=== PATIENT | female | born 1945 | race Caucasian/White ===

== ENCOUNTER 2017-03-06 09:07 | Outpatient (CLI) | payer MEDICARE, OTHER ==
[2017-03-06 18:13] LABS: T4 (THYROXINE) 9.27 ug/dL (6.09-12.23)
[2017-03-06 18:17] LABS: THYROID STIMULATING HORMONE 0.54 uIU/mL (0.34-5.60)
[2017-03-06 18:18] LABS: FREE T4 (FREE THYROXINE) 1.11 ng/dL (0.58-1.64)
[2017-03-06 18:22] LABS: TOTAL T3 0.6 ng/mL (0.87-1.78)
== END 2017-03-06 09:08 | disposition home or self-care (01) ==
LOC: LAB.F 09:07
PROVIDERS: ATTEND Internal Medicine
DX: E03.9 Hypothyroidism, unspecified (principal); M35.3 Polymyalgia rheumatica
CPT/HCPCS: 36415; 84436; 84439; 84443; 84480; 84481; 85651; 86140

== ENCOUNTER 2017-08-24 10:32 | Outpatient (CLI) | payer MEDICARE, OTHER ==
[2017-08-24 18:38] LABS: ALBUMIN 4.4 g/dL (3.2-5.5); ALBUMIN/GLOBULIN RATIO 1.5 (1.0-2.2); BILIRUBIN,TOTAL 0.6 mg/dL (0.2-1.0); CALCIUM 9.6 mg/dL (8.5-10.3); CREATININE 0.7 mg/dL (0.4-1.0); TOTAL PROTEIN 7.4 g/dL (6.7-8.2)
== END 2017-08-24 10:33 | disposition home or self-care (01) ==
LOC: LAB.F 10:32
PROVIDERS: ATTEND Nurse Practitioner Family
DX: M81.0 Age-related osteoporosis without current pathological fracture (principal)
CPT/HCPCS: 36415; 80053

== ENCOUNTER 2017-10-22 08:00 | Outpatient (CLI) | payer MEDICARE, OTHER ==
[2017-10-22 18:26] LABS: CREATININE 0.6 mg/dL (0.4-1.0)
== END 2017-10-22 08:01 | disposition home or self-care (01) ==
LOC: LAB.R 08:00
PROVIDERS: ATTEND Physician Assistant Medical
DX: Z79.899 Other long term (current) drug therapy (principal)
CPT/HCPCS: 82565

== ENCOUNTER 2017-10-22 14:36 | Outpatient (CLI) | payer MEDICARE, OTHER ==
--- NOTE | 2017-10-22 15:35 | XRAY Report ---
Reason: KNEE JOINT PAIN, Procedure Date: 10/22/2017 Accession Number: [id number] / [id number] Procedure: XR - Knee 3 View LT CPT Code: FULL RESULT: EXAM: LEFT KNEE RADIOGRAPHY EXAM DATE: 10/22/2017 02:56 PM. CLINICAL HISTORY: KNEE JOINT PAIN. COMPARISON: None. TECHNIQUE: 3 views. FINDINGS: Knee prosthesis is noted. Alignment appears anatomic. There is a small effusion. No evidence of fracture or acute complication. IMPRESSION: Knee prosthesis. No evidence of fracture or acute complication RADIA
== END 2017-10-22 14:37 | disposition home or self-care (01) ==
LOC: DI 14:36
PROVIDERS: ATTEND Physician Assistant Medical
DX: M25.562 Pain in left knee (principal); Z96.652 Presence of left artificial knee joint

== ENCOUNTER 2018-03-10 08:13 | Outpatient (CLI) | payer MEDICARE, OTHER ==
[2018-03-10 10:51] LABS: BASOPHILS % (AUTO) 0.6 %; EOSINOPHILS # (AUTO) 0.3 10^3/uL (0.0-0.7); EOSINOPHILS % (AUTO) 5.2 %; HGB - HEMOGLOBIN 13.6 g/dL (12.0-16.0); LYMPHOCYTES # (AUTO) 1.7 10^3/uL (1.5-3.5); LYMPHOCYTES % (AUTO) 30.9 %; MEAN CORPUSCULAR HEMOGLOBIN 30.6 pg (27.0-31.0); MEAN CORPUSCULAR HGB CONC 34.2 g/dL (32.0-36.0); MEAN CORPUSCULAR VOLUME 89.4 fL (81.0-99.0); MEAN PLATELET VOLUME 9.2 fL (7.9-10.8); MONOCYTES # (AUTO) 0.5 10^3/uL (0.0-1.0); MONOCYTES % (AUTO) 8.5 %; NEUTROPHILS % (AUTO) 54.8 %; PLT - PLATELET COUNT 222 10^3/uL (130-450); RED BLOOD COUNT 4.44 10^6/uL (4.20-5.40); RED CELL DISTRIBUTION WIDTH 13.4 % (12.0-15.0); WHITE BLOOD COUNT 5.5 x10^3/uL (4.8-10.8)
[2018-03-10 11:12] LABS: T4 (THYROXINE) 8.41 ug/dL (6.09-12.23)
[2018-03-10 11:16] LABS: FREE T4 (FREE THYROXINE) 1.1 ng/dL (0.58-1.64); THYROID STIMULATING HORMONE 0.31 uIU/mL (0.34-5.60)
[2018-03-10 11:20] LABS: TOTAL T3 0.74 ng/mL (0.87-1.78)
== END 2018-03-10 08:14 | disposition home or self-care (01) ==
LOC: LAB.F 08:13
PROVIDERS: ATTEND Internal Medicine
DX: M81.0 Age-related osteoporosis without current pathological fracture (principal); E03.9 Hypothyroidism, unspecified; M35.3 Polymyalgia rheumatica; Z79.899 Other long term (current) drug therapy
CPT/HCPCS: 36415; 80053; 82306; 84436; 84439; 84443; 84480; 84481; 85025; 86140

== ENCOUNTER 2022-04-14 08:00 | Outpatient (CLI) | payer MEDICARE, OTHER ==
--- NOTE | 2022-04-14 19:17 | XRAY Report ---
PROCEDURE: Hip w/Pelvis 2-3V RT INDICATIONS: CONTUSION OF RIGHT HIP TECHNIQUE: AP pelvis with lateral view(s) of the right hip(s). COMPARISON: None. FINDINGS: Bones: No fractures or dislocations. Pelvic ring appears intact. No suspicious bony lesions. 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 Degenerative disc disease in the lower lumbar spine. Soft tissues: The visualized bowel gas pattern is normal. No suspicious soft tissue calcifications. IMPRESSION: No acute osseous abnormalities. If clinical symptoms persist persists, consider repeat e xamination or advanced imaging such as CT or MRI. Reviewed by: Kory Vogel MD on 04/14/2022 7:15 PM PST Approved by: Kory Vogel MD on 04/14/2022 7:15 PM PST Station ID: [id number]
== END 2022-04-14 23:59 | disposition home or self-care (01) ==
LOC: DI.S 08:00
PROVIDERS: ATTEND Physician Assistant Medical
DX: S70.01XA Contusion of right hip, initial encounter (principal)

== ENCOUNTER 2023-08-11 08:00 | Outpatient (CLI) | payer MEDICARE, OTHER | END 2023-08-11 23:59 | disposition home or self-care (01) | LOC: LAB.WCP 08:00 | PROVIDERS: ATTEND Physician Assistant | DX: J06.9 Acute upper respiratory infection, unspecified (principal) ==